=== PATIENT | male | born 1930 | race Caucasian/White ===

== ENCOUNTER 2017-04-10 17:28 | Inpatient (IN) ==
--- NOTE | 2017-04-10 18:24 | Emergency Department Report ---
General Adult HPI - General Chief complaint: Weakness Stated complaint: Weakness, tired Time Seen by Provider: 04/10/17 18:09 Source: patient, family Mode of arrival: ambulatory Limitations: no limitations - History of Present Illness HPI narrative: 86-year-old male presents the emergency department with the chief complaint of generalized weakness. Patient notes that earlier this afternoon after eating at [employer] and returning home at lunchtime he was ambulating in the backyard where he went to urinate when he felt generally weak and lowered himself to the ground. He denies falling or striking his head. He denies any current pain or discomfort. Patient does note a feeling of generalized weakness. Patient does note that he has been experiencing production of yellow phlegm recently as well. He denies any other complaints or associated symptoms. He does not note any exacerbating or remitting factors. He was at home when the symptoms began. Symptoms have been persistent in nature since onset. - Related Data Home Medications Medication Instructions Recorded Confirmed Adrenal Supplement 04/10/17 Ascorbate Calcium [Vitamin C] 500 mg PO DAILY 04/10/17 04/10/17 Beta-Carotene(A)-Vits C,E/Mins 1 each PO DAILY 04/10/17 04/10/17 [Vision Vitamins] Magnesium Oxide 500 mg PO DAILY 04/10/17 04/10/17 Melatonin/Pyridoxine HCl (B6) 2 each PO HS 04/10/17 04/10/17 [Melatonin 3 mg Tablet] Menthol [Biofreeze] 118 ml TP PRN PRN 04/10/17 04/10/17 [place]-3 Fatty Acids [Fish Oil 3 tab PO DAILY 04/10/17 04/10/17 Concentrate] Sennosides/Docusate Sodium [Stool 1 each PO DAILY 04/10/17 04/10/17 Softener Tablet] Allergies Allergy/AdvReac Type Severity Reaction Status Date / Time No Known Allergies Allergy Verified 04/10/17 18:13 Review of Systems Constitutional: Denies: fever, chills Eyes: Denies: eye discharge, vision change ENT: Denies: throat pain, dental pain Cardiovascular: Denies: chest pain, dyspnea on exertion Respiratory: Denies: cough, dyspnea Gastrointestinal: Denies: abdominal pain, nausea, vomiting, diarrhea Genitourinary: Denies: urgency, dysuria Musculoskeletal: Denies: back pain, arthralgia Integumentary: Denies: erythema, rash Neurological: Reports: weakness (generalized weakness). Denies: headache, numbness Psychiatric: Denies: anxiety, depression Endocrine: Reports: fatigue. 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 Gastroesophageal Reflux Yes Disease Osteoarthritis Yes Surgical History: Bilateral total hip replacement Family History: Negative - Social History Smoking status: Never smoker Substance use type: does not use Alcohol intake frequency: does not drink Physical Exam - Limitations Limitations: no limitations - General General appearance: alert, in no apparent distress - Normal Exams: Head:: Normocephalic without trauma Eyes:: Pupils are PERRLA w/ EOMI, No scleral icterus, irritation, or foreign bodies noted ENMT:: No facial trauma, nasal exudates, pharyngeal erythema, or exudates are noted Dental: No fractured, loose, or missing teeth noted Neck:: Full range of motion, without adenopathy, JVD, bruits or thyromegaly Chest/Respirations:: Clear all still, with good airflow, and symmetry bilaterally (lungs are slightly diminished throughout.) Cardiovascular:: Regular rate and rhythm, without murmur or gallop, Pulses 2+ all extremities, capillary refill, <2 seconds all extremities Abdomen:: Bowel sounds positive, soft, non-tender, non-distended, no hepatosplenomegaly, masses or bruits noted Lymphatic:: No lymphadenopathy, or lymphedema noted Musculoskeletal:: No tenderness, or deformity noted, good range of motion, all extremities Integumentary:: No rashes, hives, or bruising noted, hair and nails, without abnormality Neurological:: Patient is alert, and oriented, cranial nerves, motor/sensory/ cerebellar, exams w/o gross deficits, to observation Psychiatric:: Patient exhibits, appropriate attention, emotion and affect Course Vital Signs Temperature 100.4 F 04/10/17 17:30 Pulse Rate 105 H 04/10/17 17:30 Respiratory Rate 18 04/10/17 17:30 Blood Pressure 140/60 H 04/10/17 17:30 Pulse Oximetry 95 04/10/17 17:30 Temperature 98.7 F 04/11/17 00:00 Pulse Rate 92 04/11/17 00:00 Respiratory Rate 18 04/11/17 00:00 Blood Pressure 108/57 04/11/17 00:00 Pulse Oximetry 99 04/11/17 00:00 Medical Decision Making - [facility] Narrative Medical decision making narrative: Labs / imaging were discussed in detail with the patient and family and questions are answered. Patient is given Rocephin and azithromycin intravenously after blood cultures and lactic acid are obtained for treatment of a right-sided infiltrate. Patient is given 500 mL normal saline intravenously times one. Patient is admitted to the service of the hospitalist after discussion with Dr. Jc in improved condition. Patient is admitted to the service of Dr. Villela. No further orders. Accepting physician is in agreement with the current plan of management. Patient did not qualify for 30 cc/kg of NS therapy in the emergency department as he did not have a lactic acid greater than 4 and he was not hypotensive. No other complaints or associated symptoms. Sepsis was considered at 192 and antibiotic therapy was ordered at that time. - Differential Diagnosis pneumonia, UTI, viral syndrome, sepsis - Lab Data Result diagrams: 04/10/17 18:29 04/10/17 18:29 Lab Results 04/10/17 04/10/17 04/10/17 Range/Units 18:29 18:29 18:29 WBC 23.0 H (4.5-11.0) T/MM3 RBC 4.28 L (4.50-5.90) M/MM3 Hgb 13.7 (13.5-17.5) GM/DL Hct 40.6 L (41-53) % MCV 94.9 (80-100) UM3 MCH 32.0 (26-34) UUG MCHC 33.7 (31-37) GM/DL RDW Std Deviation 43.5 (36.9-50.2) FL Plt Count 210 (130-400) T/MM3 MPV 10.0 (9.4-12.4) UM3 Immature Gran % (Auto) Not performed Neut % (Auto) Not performed Lymph % (Auto) Not performed [place] % (Auto) Not performed Eos % (Auto) Not performed Baso % (Auto) Not performed Neut # Not performed Lymph # Not performed [place] # Not performed Baso # Not performed Abs Immat Gran (auto) Not performed Neutrophils % (Manual) 93.0 H (33-66) % Band Neutrophils % 3.0 (0-6) % Lymphocytes % (Manual) 2.0 L (23-45) % Monocytes % (Manual) 2.0 (0-9.0) % Neutrophils # (Manual) 21.4 H (1.8-7.7) T/MM3 Band Neutrophils # 0.7 T/MM3 Lymphocytes # (Manual) 0.5 L (1-4.8) T/MM3 Monocytes # (Manual) 0.5 (0-0.8) T/MM3 RBC Morph Comment Normal Turbidity < 20 (0-20) Sodium 137 (134-144) MEQ/L Potassium 4.4 (3.6-5) MEQ/L Chloride 100 (98-107) MEQ/L Carbon Dioxide 27 (22-30) MEQ/L Anion Gap 10 (5-15) MEQ/L BUN 13.0 (9-20) MG/DL Creatinine 0.9 (0.8-1.5) MG/DL GFR Calculation 80 BUN/Creatinine Ratio 14 (6-26) RATIO Glucose 140 H (75-110) MG/DL Calculated Osmolality 266 (261-280) MOSM/KG Calcium 9.9 (8.4-10.2) MG/DL Total Bilirubin 1.20 (0.20-1.30) MG/DL Icterus Index < 2 (0-7) AST 63 H (17-59) U/L ALT 65 (21-72) U/L Alkaline Phosphatase 110 (38-126) U/L Troponin I < 0.012 (0-0.12) ng/ml Total Protein 7.2 (6.3-8.2) G/DL Albumin 4.5 (3.5-5.0) G/DL Globulin 2.7 (2.4-3.6) G/DL Albumin/Globulin Ratio 1.7 (1.1-2.2) RATIO Plasma Lactate 1.8 (0.6-2.2) MMOL/L Procalcitonin NG/ML Specimen Hemolysis < 15 (0-25) Ur Collection Type Urine, clean catch Urine Color Yellow (YELLOW) Urine Clarity Clear Urine pH 5.5 (5.0-8.0) Ur Specific [place] 1.020 (1.015-1.025) Urine Protein Negative (NEGATIVE) Urine Glucose (UA) Negative (NEGATIVE) Urine Ketones Negative (NEGATIVE) Urine Occult Blood 1+ A (NEGATIVE) Urine Nitrate Negative (NEGATIVE) Urine Bilirubin Negative (NEGATIVE) Urine Urobilinogen 1.0 (NORMAL) EU/DL Ur Leukocyte Esterase Negative (NEGATIVE) Urine RBC 1-3 (0-3) /HPF Urine WBC 1-3 (0-5) /HPF Ur Squamous Epith Cells 0-5 Urine Bacteria Trace H (NEGATIVE) Urine Mucus Present Ur Culture Indicated? Cult not indicated 04/10/17 Range/Units 18:29 WBC (4.5-11.0) T/MM3 RBC (4.50-5.90) M/MM3 Hgb (13.5-17.5) GM/DL Hct (41-53) % MCV (80-100) UM3 MCH (26-34) UUG MCHC (31-37) GM/DL RDW Std Deviation (36.9-50.2) FL Plt Count (130-400) T/MM3 MPV (9.4-12.4) UM3 Immature Gran % (Auto) Neut % (Auto) Lymph % (Auto) [place] % (Auto) Eos % (Auto) Baso % (Auto) Neut # Lymph # [place] # Baso # Abs Immat Gran (auto) Neutrophils % (Manual) (33-66) % Band Neutrophils % (0-6) % Lymphocytes % (Manual) (23-45) % Monocytes % (Manual) (0-9.0) % Neutrophils # (Manual) (1.8-7.7) T/MM3 Band Neutrophils # T/MM3 Lymphocytes # (Manual) (1-4.8) T/MM3 Monocytes # (Manual) (0-0.8) T/MM3 RBC Morph Comment Turbidity (0-20) Sodium (134-144) MEQ/L Potassium (3.6-5) MEQ/L Chloride (98-107) MEQ/L Carbon Dioxide (22-30) MEQ/L Anion Gap (5-15) MEQ/L BUN (9-20) MG/DL Creatinine (0.8-1.5) MG/DL GFR Calculation BUN/Creatinine Ratio (6-26) RATIO Glucose (75-110) MG/DL Calculated Osmolality (261-280) MOSM/KG Calcium (8.4-10.2) MG/DL Total Bilirubin (0.20-1.30) MG/DL Icterus Index (0-7) AST (17-59) U/L ALT (21-72) U/L Alkaline Phosphatase (38-126) U/L Troponin I (0-0.12) ng/ml Total Protein (6.3-8.2) G/DL Albumin (3.5-5.0) G/DL Globulin (2.4-3.6) G/DL Albumin/Globulin Ratio (1.1-2.2) RATIO Plasma Lactate (0.6-2.2) MMOL/L Procalcitonin 0.31 NG/ML Specimen Hemolysis (0-25) Ur Collection Type Urine Color (YELLOW) Urine Clarity Urine pH (5.0-8.0) Ur Specific [place] (1.015-1.025) Urine Protein (NEGATIVE) Urine Glucose (UA) (NEGATIVE) Urine Ketones (NEGATIVE) Urine Occult Blood (NEGATIVE) Urine Nitrate (NEGATIVE) Urine Bilirubin (NEGATIVE) Urine Urobilinogen (NORMAL) EU/DL Ur Leukocyte Esterase (NEGATIVE) Urine RBC (0-3) /HPF Urine WBC (0-5) /HPF Ur Squamous Epith Cells Urine Bacteria (NEGATIVE) Urine Mucus Ur Culture Indicated? - Radiology Data CXR - RUL Infiltrate otherwise no acute processes. - EKG Data EKG #1 EKG results narrative: Sinus tachycardia. 1st degree AV block. Right bundle branch block. 105 bpm. No STEMI. Disposition Clinical Impression: Dehydration Disposition: [address] [facility] Condition: Stable Time of Disposition: 19:20 (Admit Dr. Li. ) - Seen By: physician
[2017-04-10] MEDS ORDERED: CEFTRIAXONE 1 G in NS 100 ML IV ONE (19:21)
[2017-04-10] MEDS ORDERED: AZITHROMYCIN IV 500 MG in NS 250ml 250 ML IV ONE (19:22)
[2017-04-10] MEDS: SALINE FLUSH 10ml SYRINGE IVF PRN ×2 (19:27→21:04)
[2017-04-10] MEDS: NS 500 ML IV SCH ×2 (19:27→22:23)
[2017-04-10] MEDS ORDERED: SALINE FLUSH 10ml SYRINGE IVF PRN (19:57)
--- NOTE | 2017-04-10 20:02 | XRay Report ---
EXAM: XR chest 2V HISTORY: Cough LOCATION OF DICTATION: [facility] COMPARISON: No prior studies available for comparison. FINDINGS: The lung still are hypoventilated. The heart is not enlarged and the mediastinum is not widened. The trachea is midline. The pulmonary vascularity is normal. There are mild increased interstitial markings that appear chronic but no acute consolidating infiltrates are seen and the costophrenic angles are clear. The bony thorax demonstrates moderately advanced degenerative changes in the shoulder joints and mild degenerative changes in the mildly kyphoscoliotic dorsal spine. There is an old fracture deformity of the right clavicle. There is artifact from cardiac monitoring lead wires over the chest. IMPRESSION: Mild chronic lung changes are evident but no acute cardiopulmonary process is identified. .
[2017-04-10] MEDS ORDERED: ONDANSETRON 4 MG/2 ML INJECTION IVP PRN (20:50)
[2017-04-10] MEDS ORDERED: CALCIUM CARBONATE Chewable 500mg TABLET PO PRN (20:50)
[2017-04-10] MEDS ORDERED: ACETAMINOPHEN 325 MG TABLET PO PRN (20:50)
[2017-04-10] MEDS ORDERED: NS 1,000 ML IV SCH ×2 (20:50→22:15)
--- NOTE | 2017-04-10 20:57 | CT Scan Report ---
EXAM: CT head/brain wo con HISTORY: AMS LOCATION OF DICTATION: [facility] COMPARISON: No prior studies available for comparison. Routine CT scan is performed without intravenous contrast administration. The current CT scan was performed using radiation dose-reduction techniques. FINDINGS: There is moderate global cerebral atrophy. The ventricles are midline without evidence of mass effect or shift. There is normal mc-white matter differentiation. There is no evidence of acute intracranial hemorrhage or acute transcortical infarct. There is moderate periventricular white matter hypoattenuation likely reflecting chronic small vessel ischemic change. There is normal variant basal ganglia calcifications. Old lacunar ischemic insults are seen in the basal ganglia bilaterally. No extra-axial masses or fluid collections are seen. The bony calvarium appears intact. There is nodular mucosal thickening in the right sphenoid sinus. The remaining paranasal sinuses are clear as are the mastoid air cells. IMPRESSION: 1. No CT evidence of acute intracranial process. 2. Moderate global cerebral atrophy and moderate periventricular white matter chronic small vessel ischemic change. 3. 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 4. 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 .
[2017-04-10] MEDS ORDERED: ALBUTEROL 2.5mg/3ml (0.083%) NEB AEROSOL PRN (21:59)
[2017-04-10] MEDS: MELATONIN 5 MG PO SCH (22:45)
[2017-04-10] MEDS ORDERED: METHYL SALICYLATE/MENTHOL OINT 28gm TP PRN (22:47)
--- NOTE | 2017-04-10 22:55 | History & Physical Report ---
<Dio Jc - Last Filed: 04/10/17 23:21> History of Present Illness Date: 04/10/17 Chief complaint: generalized weakness, fatigue HPI: 86 y/o male presents to ED at [facility] w/ chief concern of generalized weakness, particularly in the lower extremities, fatigue, mild shortness of air, rarel cough, post-nasal drip and fever to 100.4 F. Patient's daughter noted patient having symptoms earlier today - patient seemed more tired after ambulation and more weak in the legs. Patient also seemed a little confused momentarily, so she decided to bring him to the ER. Patient denies sputum production, denies focal weakness or deficit, denies numbness and tingling and denies change in speech. Further denies n/v/d and denies change in bladder function. Patient denies chest pain, SADLER. Just overall malaise and fatigue. In ER, patient noted to have RUL infiltrate c/w pneumonia, was febrile to 100.4F , demonstrated an elevated WBC of 23K with 93% neutrophils; lactate level was 1.8. 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 Tropoinin was unremarkable. Patient given 500cc NS IVFs, IV Rocephin 1g and 500mg IV azithromycin. Patient admitted to the Hospitalist service for further evaluation and management. At the time that I saw the patient, he was feeling much better and patient's daughter agreed and thought the IV fluids and antibiotics had helped. 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 Surgical History: Bilateral total hip replacement - Social History Smoking status: Never smoker Medications Home Medications Medication Instructions Recorded Confirmed Type Adrenal Supplement 04/10/17 History Ascorbate Calcium [Vitamin C] 500 mg PO DAILY 04/10/17 04/10/17 History Beta-Carotene(A)-Vits C,E/Mins 1 each PO DAILY 04/10/17 04/10/17 History [Vision Vitamins] Magnesium Oxide 500 mg PO DAILY 04/10/17 04/10/17 History Melatonin/Pyridoxine HCl (B6) 2 each PO HS 04/10/17 04/10/17 History [Melatonin 3 mg Tablet] Menthol [Biofreeze] 118 ml TP PRN PRN 04/10/17 04/10/17 History [place]-3 Fatty Acids [Fish Oil 3 tab PO DAILY 04/10/17 04/10/17 History Concentrate] Sennosides/Docusate Sodium [Stool 1 each PO DAILY 04/10/17 04/10/17 History Softener Tablet] Allergies Allergy/AdvReac Type Severity Reaction Status Date / Time No Known Allergies Allergy Verified 04/10/17 18:13 Exam Vital Signs: Temp Pulse Resp BP Pulse Ox 99.0 F 99 18 101/50 93 04/10/17 20:05 04/10/17 20:56 04/10/17 20:56 04/10/17 20:04 04/10/17 20:56 Telemetry Rhythm: Sinus Rhythm Height: 1.8 m Weight: 83 kg Body Mass Index: 25.4 - Constitutional Present: no acute distress, well nourished, well developed - Routine HEENT Exam Head: Present: normocephalic, atraumatic Eye: Present: EOMI ENT: Present: mucous membranes dry Comments: Patient is hard of hearing - Routine Neck Exam Present: supple, full ROM. Absent: JVD - Routine Respiratory Exam Present: CTA bilaterally. Absent: accessory muscle use Comments: rhonchi on the right; otherwise good air movement. - Routine Cardiovascular Exam Present: RRR - Routine Abdominal Exam Present: soft, normoactive bowel sounds. 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 5) Dental caries s/p multiple procedures 6) Acute mild dehydration POA 7) Hearing loss - chronic Plan: Admit to Hospitalist service for further evaluation and management Continue Zithromax and Rocephin for now - if continues to improve on this regimen likely CAP; if not, consider changing to Zosyn w/ concern for possible aspiration pneumonia/pneumonitis Blood cultures pending Sputum culture if able to obtain Labs in the AM IVFs that of NS to run at 75 cc/hour overnight - reassess in the AM Regular diet for now - if any concerns re: swallowing issues then Speech therapy consult Prn Albuterol SCDs Repeat lactate Prn meds Melatonin hs - patient takes at night at home RT consult I discussed the plan of care with the patient and patient's family and they verbalized understanding and agreement. Sepsis Assessment - Focused Exam Vital Signs Pulse Resp Pulse Ox 04/10/17 20:56 99 18 93 04/10/17 20:30 106 H 45 H 93 Hospital Course Summary Disclaimer: The visit summary below is not to be considered part of the above Progress Note. 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 Chart reviewed. Reviewed above H &P and concur. CC: Weakness HPI: 86 y/o active and healthy WM presents to ED due to weakness. Had big day on Tuesday-out to sabianism and then out to eat. Had large group due to Father's day. With his blindness and hearing problems, large group activities are very mentally draining. When went home, was feeling tire. Did go outside to urinate ( he typically does this) but had hard time keeping his bearing. Mobile weak and went to ground. Called for help and his 14 y/o foster daughter came, but unable to assist him up. More help came and taken to ED. Overall, denies specific medical problems. Notes slight cough with brushing his teeth but denies chest congestion, pain with breathing, or sputum. No chest pressure or palpitations. Not having f/c. Not feeling 'sick' the last several days. Urinating well. No n/v. Bowels chronically slow, but stable. No ab pain. No unilateral weakness or numbness. Not having skin itching. PMHx: OA-B hip replacements, Blindness, hearing loss; No Hx Heart/lung disease or DM. Meds: reviewed - supplements; take no prescription medications. ALL: NKDA SHx: (50 years this coming October 15). Never smoked or used ETOH. Exercises regularly. Retired from [employer] (never layed off). Dr Leon PCP. FHx: Pt denies family Hx. ROS: as in HPI. Remainder of 10 point ROS negative. Exam GEN: [id number] A&O Communicates well. HEENT: NC/AT MMM Neck: Supple, midline, non rigid Lungs: decreased bilaterally, but without crackles/wheezes/distress. Breaths comfortably on RA. AB: soft nt/nd +BS EXT: no edema. SCD in place. Normal Radial pulses bilaterally. Skin: warm, dry, intact Neuro: Blind. No motor deficits PSYCH: Awake alert appropriate. Converses well. No agitation or restlessness. MS: normal ROM of upper/lower ext. Preserved muscle mass. Lab: Reviewed CXR: Reviewed Assessment: as above Plan: Continue with antimicrobial therapy. Continue with IVF to help with hydration. Check TSH due to fatigue. Will recheck CXR in am. Repeat CBC in am - decreasing but WBC with elevation. Discussed with pt about his positive BC and continued need for hospitalization-frustrating for him as he is currently feeling so much better and wanting to go home. Sepsis Assessment - Focused Exam Vital Signs Temp Pulse Resp BP Pulse Ox 04/11/17 07:34 98.4 F 77 18 95/58 95 04/11/17 00:00 98.7 F 92 18 108/57 99 04/10/17 23:51 96 18 92 Hospital Course Summary Disclaimer: The visit summary below is not to be considered part of the above Progress Note. Hospital Course: 04/10 Admit to Hospitalist service for further evaluation and management Continue Zithromax and Rocephin for now - if continues to improve on this regimen likely CAP; if not, consider changing to Zosyn w/ concern for possible aspiration pneumonia/pneumonitis Blood cultures pending Sputum culture if able to obtain Labs in the AM IVFs that of NS to run at 75 cc/hour overnight - reassess in the AM Regular diet for now - if any concerns re: swallowing issues then Speech therapy consult Prn Albuterol SCDs Repeat lactate Prn meds Melatonin hs - patient takes at night at home RT consult 04/11 Continues to improve. Feeling much better-weakness resolved. Breathing well on RA. No f/c/n/v. WBC decreased to 18.3K. Continue with antimicrobial therapy. Continue with IVF to help with hydration. Check TSH due to fatigue. Will recheck CXR in am. Repeat CBC in am - decreasing but WBC with elevation. Discussed with pt about his positive BC and continued need for hospitalization-frustrating for him as he is currently feeling so much better and wanting to go home.
[2017-04-11] MEDS ORDERED: BISACODYL 10 MG SUPPOSITORY RECTALLY PRN (10:32)
[2017-04-11] MEDS ORDERED: POLYETHYL GLYCOL 3350 17gm PACKET PO PRN (10:32)
[2017-04-11] MEDS: SENNA + DOCUSATE TABLET PO SCH (12:03)
[2017-04-11] MEDS: NS 1,000 ML IV SCH (12:03)
[2017-04-11] MEDS: MELATONIN 5 MG PO SCH ×2 (18:42→22:16)
[2017-04-11] MEDS: CEFTRIAXONE 1 G in NS 100 ML IV SCH (19:51)
[2017-04-11] MEDS ORDERED: AZITHROMYCIN IV SCH (20:00)
[2017-04-11] MEDS ORDERED: NS IV SCH (20:00)
[2017-04-11] MEDS: GUAIFENESIN/D-METHORPHAN 600 MG/30 MG TABLET PO SCH (20:12)
[2017-04-11] MEDS: [UNRECOGNIZED DRUG - OTHER] PO SCH (20:58)
[2017-04-12] MEDS: NS 1,000 ML IV SCH (04:26)
--- NOTE | 2017-04-12 08:03 | XRay Report ---
INDICATION: Suspect infiltrate PROCEDURE: CHEST 2-VIEWS UPRIGHT (PA & LAT) Encounter: Initial COMPARISON: April 10, 2017 FINDINGS: The lungs are clear without evidence of focal abnormal airspace opacity. There is no pleural effusion or pneumothorax. The heart size, mediastinal contours and pulmonary vascularity are within normal limits. IMPRESSION: No acute cardiopulmonary disease. .
[2017-04-12] MEDS: ASCORBIC ACID 500 MG TABLET PO SCH (08:33)
[2017-04-12] MEDS: SENNA + DOCUSATE TABLET PO SCH (08:34)
[2017-04-12] MEDS: PYRIDOXINE 100mg TABLET PO SCH (08:34)
[2017-04-12] MEDS: [UNRECOGNIZED DRUG - OTHER] PO SCH (08:34)
[2017-04-12] MEDS: OMEGA ACID PO SCH (08:34)
[2017-04-12] MEDS: MULTI VIT PO SCH (08:34)
[2017-04-12] MEDS: MAGNESIUM OXIDE 400 MG TABLET PO SCH (08:34)
[2017-04-12] MEDS: GUAIFENESIN/D-METHORPHAN 600 MG/30 MG TABLET PO SCH ×2 (08:34→20:51)
[2017-04-12] MEDS: [UNRECOGNIZED DRUG - OTHER] PO SCH (08:35)
[2017-04-12] MEDS: ASTAXANTHIN PO SCH (08:36)
[2017-04-12] MEDS: AZITHROMYCIN 500 MG TABLET PO SCH (14:23)
--- NOTE | 2017-04-12 15:48 | Progress Note ---
Subjective: F/U: Septicemia with Strep agalactiae Doing well today. No f/c. Strength stable. Breathing well without SOA, cough or congestion. Eating well. No nausea or ab pain. Notes increased need to urinate - urinated often last night. Objective Vital signs: Temp Pulse Resp BP Pulse Ox 97.8 F 81 16 139/67 95 04/12/17 08:40 04/12/17 08:40 04/12/17 08:40 04/12/17 08:40 04/12/17 08:40 Weight: 86.2 kg - Constitutional Present: no acute distress, well nourished, well developed, cooperative - Routine HEENT Exam Head: Present: normocephalic, atraumatic ENT: Present: mucous membranes moist - Routine Respiratory Exam Present: CTA bilaterally. Absent: respiratory distress, wheezes, crackles - Routine Cardiovascular Exam Present: RRR - Routine Abdominal Exam Present: soft, normoactive bowel sounds, non distended, non tender - Routine Extremities Exam Present: pulses intact. Absent: cyanosis, clubbing, no edema - Routine Musculoskeletal Exam Musculoskeletal: no clubbing or cyanosis, normal strength - Routine Skin Exam Present: intact, dry, warm. Absent: mottling - Routine Neurological Exam Present: alert, oriented X3, hearing grossly intact. Absent: motor deficit - Routine Psychiatric Exam Present: normal affect, normal thought process, cooperative. Absent: anxious, agitated Results - Labs CBC & Chem 7: 04/12/17 04:43 04/12/17 04:43 Assessment and Plan (1) Sepsis due to Streptococcus agalactiae Problem details: 2/2 BC positive. 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 May d/c IVF as dehydration resolved and taking po well. Encourage ambulation and activities. Continue home supplements. Check on pending B12 level. Repeat CBC in am due to resolving sepsis. Possible discharge home tomorrow if continue to do well and lab is stable. Case discussed with pt's . Time spent with patient care 25 minutes. Sepsis Assessment - Evaluation Sepsis screening result: No Definite Risk Hospital Course Summary Disclaimer: The visit summary below is not to be considered part of the above Progress Note. Hospital Course: 04/10 Admit to Hospitalist service for further evaluation and management Continue Zithromax and Rocephin for now - if continues to improve on this regimen likely CAP; if not, consider changing to Zosyn w/ concern for possible aspiration pneumonia/pneumonitis Blood cultures pending Sputum culture if able to obtain Labs in the AM IVFs that of NS to run at 75 cc/hour overnight - reassess in the AM Regular diet for now - if any concerns re: swallowing issues then Speech therapy consult Prn Albuterol SCDs Repeat lactate Prn meds Melatonin hs - patient takes at night at home RT consult 04/11 Continues to improve. Feeling much better-weakness resolved. Breathing well on RA. No f/c/n/v. WBC decreased to 18.3K. Continue with antimicrobial therapy. Continue with IVF to help with hydration. Check TSH due to fatigue. Will recheck CXR in am. Repeat CBC in am - decreasing but WBC with elevation. Discussed with pt about his positive BC and continued need for hospitalization-frustrating for him as he is currently feeling so much better and wanting to go home. 04/12 Doing well today. No f/c. Strength stable. Breathing well without SOA, cough or congestion. Eating well. No nausea or ab pain. Notes increased need to urinate - urinated often last night. WBC normalized and SIRS criteria resolved-will continue IV Rocephin for coverage , changing azithromycin to oral. May d/c IVF as dehydration resolved and taking po well. Encourage ambulation and activities. Continue home supplements. Check on pending B12 level. Repeat CBC in am due to resolving sepsis. Possible discharge home tomorrow if continue to do well and lab is stable.
[2017-04-12] MEDS: CEFTRIAXONE 1 G in NS 100 ML IV SCH (19:35)
[2017-04-12] MEDS: SALINE FLUSH 10ml SYRINGE IVF PRN (19:35)
[2017-04-12] MEDS: [UNRECOGNIZED DRUG - OTHER] PO SCH (20:51)
[2017-04-12] MEDS: MELATONIN 5 MG PO SCH (22:12)
[2017-04-13] MEDS: OMEGA ACID PO SCH (08:22)
[2017-04-13] MEDS: MAGNESIUM OXIDE 400 MG TABLET PO SCH (08:22)
[2017-04-13] MEDS: SENNA + DOCUSATE TABLET PO SCH (08:23)
[2017-04-13] MEDS: PYRIDOXINE 100mg TABLET PO SCH (08:23)
[2017-04-13] MEDS: GUAIFENESIN/D-METHORPHAN 600 MG/30 MG TABLET PO SCH ×2 (08:23→20:53)
[2017-04-13] MEDS: [UNRECOGNIZED DRUG - OTHER] PO SCH (08:23)
[2017-04-13] MEDS: AZITHROMYCIN 500 MG TABLET PO SCH (08:23)
[2017-04-13] MEDS: MULTI VIT PO SCH (08:23)
[2017-04-13] MEDS: ASCORBIC ACID 500 MG TABLET PO SCH (08:23)
[2017-04-13] MEDS: ASTAXANTHIN PO SCH (08:24)
[2017-04-13] MEDS: [UNRECOGNIZED DRUG - OTHER] PO SCH (08:24)
--- NOTE | 2017-04-13 13:37 | Progress Note ---
Subjective: Pt states he is doing well today and would like to go home. Objective Vital signs: Temp Pulse Resp BP Pulse Ox 97.6 F 64 18 157/75 H 96 04/13/17 07:59 04/13/17 07:59 04/13/17 07:59 04/13/17 07:59 04/13/17 07:59 Rhythm: Normal Sinus Rhythm Weight: 84.3 kg - Constitutional Present: no acute distress, well nourished, well developed, cooperative - Routine HEENT Exam Head: Present: normocephalic, atraumatic Eye: Present: EOMI, PERRL - Routine Cardiovascular Exam Present: RRR - Routine Abdominal Exam Present: soft, non distended, non tender - Routine Extremities Exam Absent: cyanosis, clubbing, edema - Routine Neurological Exam Present: alert Pt has very little vision left and is hard of hearing. Results - Labs CBC & Chem 7: 04/13/17 04:50 04/13/17 04:50 Assessment and Plan (1) Dehydration Current visit: Yes Status: Resolved (2) Pneumonia Current visit: Yes Status: Acute (3) Sepsis due to Streptococcus agalactiae Problem details: 2/2 BC positive. 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 Pt was found to have S Agalactie in 2/2 cultures and is currently on Rocephin and oral Azithromicyn. Pt was diangosed also with PNA. His leukocytosis is better, he states he is feeling better as well , with no fever. Pt does not have any pacemaker or prosthetic valve that I can see in CXR. 1) Bacteremia with S Agalactie. - Tolerating well Rocephin - Pt has no IV access - Discussed with ID - she can not see pt but discussed case via telephone. Pt may be changed to oral Amoxicillin. - Recheck BC - if stable in the AM and CXR is stable, may be able to go home. 2) B12 level is 308 - LOW normal. Some pts may have symptoms under 400. - Check MMA - May replace as outapatient Plan Check CXR and BC x 2 Stop Azithromicyn and Rocephin - change to oral Amoxicillin If labs and CXR normal - D/C home on PO amoxicillin to complete 10 days of treatment. Sepsis Assessment - Evaluation Sepsis screening result: No Definite Risk Hospital Course Summary Disclaimer: The visit summary below is not to be considered part of the above Progress Note. Hospital Course: 04/10 Admit to Hospitalist service for further evaluation and management Continue Zithromax and Rocephin for now - if continues to improve on this regimen likely CAP; if not, consider changing to Zosyn w/ concern for possible aspiration pneumonia/pneumonitis Blood cultures pending Sputum culture if able to obtain Labs in the AM IVFs that of NS to run at 75 cc/hour overnight - reassess in the AM Regular diet for now - if any concerns re: swallowing issues then Speech therapy consult Prn Albuterol SCDs Repeat lactate Prn meds Melatonin hs - patient takes at night at home RT consult 04/11 Continues to improve. Feeling much better-weakness resolved. Breathing well on RA. No f/c/n/v. WBC decreased to 18.3K. Continue with antimicrobial therapy. Continue with IVF to help with hydration. Check TSH due to fatigue. Will recheck CXR in am. Repeat CBC in am - decreasing but WBC with elevation. Discussed with pt about his positive BC and continued need for hospitalization-frustrating for him as he is currently feeling so much better and wanting to go home. 04/12 Doing well today. No f/c. Strength stable. Breathing well without SOA, cough or congestion. Eating well. No nausea or ab pain. Notes increased need to urinate - urinated often last night. WBC normalized and SIRS criteria resolved-will continue IV Rocephin for coverage , changing azithromycin to oral. May d/c IVF as dehydration resolved and taking po well. Encourage ambulation and activities. Continue home supplements. Check on pending B12 level. Repeat CBC in am due to resolving sepsis. Possible discharge home tomorrow if continue to do well and lab is stable.
--- NOTE | 2017-04-13 14:49 | XRay Report ---
INDICATION: Follow up - pt with Dx of PNA PROCEDURE: CHEST 2-VIEWS UPRIGHT (PA & LAT) Encounter: Initial COMPARISON: April 12, 2017 FINDINGS: The lungs are clear without evidence of focal abnormal airspace opacity. There is no pleural effusion or pneumothorax. The heart size, mediastinal contours and pulmonary vascularity are within normal limits. There is no significant skeletal abnormality. IMPRESSION: No acute cardiopulmonary disease. .
[2017-04-13] MEDS: SALINE FLUSH 10ml SYRINGE IVF PRN ×2 (17:11→20:55)
[2017-04-13] MEDS: AMOXICILLIN 500 MG CAPSULE PO SCH ×2 (17:11→23:36)
[2017-04-13] MEDS: MELATONIN 5 MG PO SCH ×2 (20:53→21:14)
[2017-04-13] MEDS: [UNRECOGNIZED DRUG - OTHER] PO SCH (20:53)
[2017-04-14] MEDS: AMOXICILLIN 500 MG CAPSULE PO SCH ×2 (01:10→11:15)
--- NOTE | 2017-04-14 10:20 | Progress Note ---
Subjective: Pt states he is feeling much better today and would like to go home. He has no fever or chills. WBC is down, repeat culture yesterday - preliminary is NEGATIVE , final is pending. Discussed at length with , who verbalized understanding hospital course and understands pt sepsis is at this time resolved, based on VSS and lab data. 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 - Routine Respiratory Exam Present: CTA bilaterally - Routine Cardiovascular Exam Present: RRR - Routine Abdominal Exam Present: soft, normoactive bowel sounds, non distended, non tender - Routine Extremities Exam Absent: cyanosis, clubbing, edema - Routine Musculoskeletal Exam Musculoskeletal: no clubbing or cyanosis - Routine Skin Exam Present: intact - Routine Neurological Exam Present: alert, oriented X3 - Routine Psychiatric Exam Present: normal affect, normal thought process, cooperative Results - Labs CBC & Chem 7: 04/14/17 04:26 04/14/17 04:26 Assessment and Plan (1) Dehydration Current visit: Yes Status: Resolved (2) Pneumonia Current visit: Yes Status: Acute (3) Sepsis due to Streptococcus agalactiae Problem details: 2/2 BC positive. 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 Pt was found to have S Agalactie in 2/2 cultures and was given Rocephin and oral Azithromicyn, these were stopped on 04/13 and pt was switched to oral Amoxicilin. His leukocytosis is better, he states he is feeling better as well , with no fever. WBC remains normal and pt is ambulating and tolerating PO well. Will proceed and D/C pt home with 7 more days of Amoxicillin. 1) Bacteremia with S Agalactie. Repeated culture on 04/13 and is currently PENDING - so far NEGATIVE. - Discussed with ID - she can not see pt but discussed case via telephone (Dr Montemayor) - She suggested to change to oral Amoxicillin and to complete treatment with this medication. Pt has no respiratory distress, cough or dyspnea. Initial CXR did not mention PNA. CXR today "......................................................... COMPARISON: April 12, 2017 FINDINGS: The lungs are clear without evidence of focal abnormal airspace opacity. There is no pleural effusion or pneumothorax. The heart size, mediastinal contours and pulmonary vascularity are within normal limits. There is no significant skeletal abnormality. IMPRESSION: No acute cardiopulmonary disease. ......................................................................." 2) B12 level is 308 - LOW normal. Some pts may have symptoms under 400. 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 - CPR was checked - it is high at 31.1 this is most lilkely due to the recent bacteremia and should be rechecked in the near future. - Family educated on the fact this disease is not limited to the eyes or temporal arteries and suggested pt follow with a glove turner. - He is controlled with an adrenal extract and has his CRP addressed periodically at the [facility]. Sepsis Assessment - Evaluation Sepsis screening result: No Definite Risk Hospital Course Summary Disclaimer: The visit summary below is not to be considered part of the above Progress Note. Hospital Course: 04/10 Admit to Hospitalist service for further evaluation and management Continue Zithromax and Rocephin for now - if continues to improve on this regimen likely CAP; if not, consider changing to Zosyn w/ concern for possible aspiration pneumonia/pneumonitis Blood cultures pending Sputum culture if able to obtain Labs in the AM IVFs that of NS to run at 75 cc/hour overnight - reassess in the AM Regular diet for now - if any concerns re: swallowing issues then Speech therapy consult Prn Albuterol SCDs Repeat lactate Prn meds Melatonin hs - patient takes at night at home RT consult 04/11 Continues to improve. Feeling much better-weakness resolved. Breathing well on RA. No f/c/n/v. WBC decreased to 18.3K. Continue with antimicrobial therapy. Continue with IVF to help with hydration. Check TSH due to fatigue. Will recheck CXR in am. Repeat CBC in am - decreasing but WBC with elevation. Discussed with pt about his positive BC and continued need for hospitalization-frustrating for him as he is currently feeling so much better and wanting to go home. 04/12 Doing well today. No f/c. Strength stable. Breathing well without SOA, cough or congestion. Eating well. No nausea or ab pain. Notes increased need to urinate - urinated often last night. WBC normalized and SIRS criteria resolved-will continue IV Rocephin for coverage , changing azithromycin to oral. May d/c IVF as dehydration resolved and taking po well. Encourage ambulation and activities. Continue home supplements. Check on pending B12 level. Repeat CBC in am due to resolving sepsis. Possible discharge home tomorrow if continue to do well and lab is stable.
[2017-04-14] MEDS: ASCORBIC ACID 500 MG TABLET PO SCH (11:13)
[2017-04-14] MEDS: MAGNESIUM OXIDE 400 MG TABLET PO SCH (11:14)
[2017-04-14] MEDS: GUAIFENESIN/D-METHORPHAN 600 MG/30 MG TABLET PO SCH (11:14)
[2017-04-14] MEDS: SENNA + DOCUSATE TABLET PO SCH (11:14)
[2017-04-14] MEDS: OMEGA ACID PO SCH (11:15)
[2017-04-14] MEDS: PYRIDOXINE 100mg TABLET PO SCH (11:16)
[2017-04-14] MEDS: [UNRECOGNIZED DRUG - OTHER] PO SCH (11:18)
[2017-04-14] MEDS: ASTAXANTHIN PO SCH (11:18)
[2017-04-14] MEDS: MULTI VIT PO SCH (11:19)
[2017-04-14] MEDS: [UNRECOGNIZED DRUG - OTHER] PO SCH (11:19)
--- NOTE | 2017-04-14 12:09 | Discharge Summary ---
Discharge Plan - Med Rec/Dispo Kevin Instructions: Weakness (GEN), Bacteremia (DC) Prescriptions: New Amoxicillin 500 mg PO Q8HR #21 cap Ascorbic Acid [Vitamin C] 500 mg PO DAILY CALCIUM CARBONATE Chewable [Tums] 1,000 mg PO Q4H PRN PRN Reason: Dyspepsia Melatonin 5 mg PO HS Pyridoxine [Vitamin B-6] 100 mg PO DAILY Vit A,C & E/Lutein/Minerals [I-[place] Tablet] 1 tab PO DAILY Acetaminophen [Tylenol] 650 mg PO Q5HR PRN PRN Reason: Discomfort Bisacodyl Supp [Dulcolax] 10 mg RECTALLY DAILY PRN supp PRN Reason: Constipation Continue Magnesium Oxide 500 mg PO DAILY [place]-3 Fatty Acids [Fish Oil Concentrate] 3 tab PO DAILY Adrenal Supplement Sennosides/Docusate Sodium [Stool Softener Tablet] 1 each PO DAILY Beta-Carotene(A)-Vits C,E/Mins [Vision Vitamins] 1 each PO DAILY Ascorbate Calcium [Vitamin C] 500 mg PO DAILY Menthol [Biofreeze] 118 ml TP PRN PRN PRN Reason: Pain Discontinued Melatonin/Pyridoxine HCl (B6) [Melatonin 3 mg Tablet] 2 each PO HS - Disposition 01 Discharged Home, Self-Care
--- NOTE | 2017-04-14 12:28 | Discharge Summary ---
Discharge Information Date of admission: 04/10/17 20:28 Attending Physician: Chas Villela MD - Discharge Diagnosis (1) Dehydration Status: Resolved (2) Sepsis due to Streptococcus agalactiae Problem Details: 2/2 BC positive. Presention with Tachycardia, temp elevation, leukocytosis, hyperglycemia Status: Resolved (3) Leukocytosis Status: Resolved (4) Legal blindness Status: Chronic (5) Hearing loss Status: Chronic (6) Neck pain Status: Chronic (7) Constipation Status: Chronic (8) Osteoarthritis Status: Chronic - Laboratory Labs: 04/14/17 04:26 04/14/17 04:26 - Microbiology Microbiology 04/13/17 14:34 Peripheral/Iv Start Blood Culture - Preliminary Culture Initiated - Results Pending History of Present Illness HPI: 86 y/o [place] [facility] [place]/ chief concern of generalized weakness, particularly in the lower extremities, fatigue, mild shortness of air, rarel cough, post-nasal drip and fever to 100.4 F. Patient's daughter noted patient having symptoms earlier today - patient seemed more tired after ambulation and more weak in the legs. Patient also seemed a little confused momentarily, so she decided to bring him to the ER. Patient denies sputum production, denies focal weakness or deficit, denies numbness and tingling and denies change in speech. Further denies n/v/d and denies change in bladder function. Patient denies chest pain, SADLER. Just overall malaise and fatigue. In ER, patient noted to have RUL infiltrate c/w pneumonia, was febrile to 100.4F , demonstrated an elevated WBC of 23K with 93% neutrophils; lactate level was 1.8. 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 Tropoinin was unremarkable. Patient given 500cc NS IVFs, IV Rocephin 1g and 500mg IV azithromycin. Patient admitted to the Hospitalist service for further evaluation and management. At the time that I saw the patient, he was feeling much better and patient's daughter agreed and thought the IV fluids and antibiotics had helped. Hospital Course Hospital course: Pt was admitted to the hospital with Dr of Sepsis. He was placed on IV antibiotics (Rocephin and Azithromicyn) and improved rapidly. BC x 2 were positive for S. Agalactie (Group B). Pt was recultured on 04/13 and this is currenlty pending. His WBC has normalized as well as his kidney function. He is eating well, awake alert oriented x 3. Pt remains stable and will be going home. today. 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 His disease appears to be controlled at present; his CPR was high, most likely due to his recent infection. Pt was encouraged to follow up closely with production broaching machine operator. . Discharge Plan - Med Rec/Dispo [place] Instructions: Weakness (GEN), Bacteremia (DC) Prescriptions: New Amoxicillin 500 mg PO Q8HR #21 cap Ascorbic Acid [Vitamin C] 500 mg PO DAILY CALCIUM CARBONATE Chewable [Tums] 1,000 mg PO Q4H PRN PRN Reason: Dyspepsia Melatonin 5 mg PO HS Pyridoxine [Vitamin B-6] 100 mg PO DAILY Vit A,C & E/Lutein/Minerals [I-[place] Tablet] 1 tab PO DAILY Acetaminophen [Tylenol] 650 mg PO Q5HR PRN PRN Reason: Discomfort Bisacodyl Supp [Dulcolax] 10 mg RECTALLY DAILY PRN supp PRN Reason: Constipation Continue Magnesium Oxide 500 mg PO DAILY [place]-3 Fatty Acids [Fish Oil Concentrate] 3 tab PO DAILY Adrenal Supplement Sennosides/Docusate Sodium [Stool Softener Tablet] 1 each PO DAILY Beta-Carotene(A)-Vits C,E/Mins [Vision Vitamins] 1 each PO DAILY Ascorbate Calcium [Vitamin C] 500 mg PO DAILY Menthol [Biofreeze] 118 ml TP PRN PRN PRN Reason: Pain Discontinued Melatonin/Pyridoxine HCl (B6) [Melatonin 3 mg Tablet] 2 each PO HS - Disposition 01 Discharged Home, Self-Care
== END 2017-04-14 14:15 | disposition home or self-care (01) | DRG 871 ==
LOC: ED 17:28 → MED 20:28
PROVIDERS: ADMIT Internal Medicine; ATTEND Hospitalist